=== PATIENT | male | born 1960 | race Caucasian/White ===

== ENCOUNTER 2023-06-30 16:05 | Emergency (ER) | payer MEDICAID ==
[~2023-06-30] VITALS: Ht 177.8 cm; Wt 92.7 kg
[2023-06-30 16:06] VITALS: TEMP 98
[2023-06-30] MEDS ORDERED: HYDROcodone/acetaminophen 10/325mg tab PO ONE ×2 (17:05→17:55)
[2023-06-30] MEDS ORDERED: ondansetron/PF 4mg/2ml inj IV ONE (17:30)
[2023-06-30] MEDS ORDERED: morphine 4 MG/ML inj SYRINge IV ONE (17:30)
[2023-06-30 17:53] LABS: BASOPHILS # (AUTO) 0.1 X10'3 (0-0.2); BASOPHILS % (AUTO) 0.9 % (0-1); EOSINOPHILS # (AUTO) 0.3 X10'3 (0-0.9); EOSINOPHILS % (AUTO) 3.7 % (0-6); HEMATOCRIT 44.6 % (42.0-52.0); LYMPHOCYTES # (AUTO) 0.8 X10'3 (1.1-4.8); LYMPHOCYTES % (AUTO) 8.9 % (21-51); MEAN CORPUSCULAR HEMOGLOBIN 29.1 PG (27.0-31.0); MEAN CORPUSCULAR HGB CONC 33.6 g/dL (33.0-36.5); MEAN CORPUSCULAR VOLUME 86.5 FL (78-98); MEAN PLATELET VOLUME 7.8 FL (7.4-10.4); MONOCYTES # (AUTO) 0.8 X10'3 (0-0.9); MONOCYTES % (AUTO) 8.5 % (2-12); NEUTROPHILS # (AUTO) 7.4 X10'3 (1.8-7.7); PLATELET COUNT 320 X10'3 (140-440); RED BLOOD COUNT 5.16 X10'6 (4.70-6.10); WHITE BLOOD COUNT 9.5 X10'3 (4.5-11.0)
[2023-06-30] MEDS ORDERED: ondansetron 4mg rapidly disintigrating tab PO ONE (17:55)
[2023-06-30 18:05] LABS: ALANINE AMINOTRANSFERASE 31 U/L (12-78); ALBUMIN 3.5 G/DL (3.4-5.0); ALBUMIN/GLOBULIN RATIO 0.8 (1.1-1.5); ALKALINE PHOSPHATASE 71 IU/L (46-116); ANION GAP 12 (8-16); ASPARTATE AMINO TRANSFERASE 22 U/L (10-37); BILIRUBIN,TOTAL 0.6 MG/DL (0.1-1.0); BLOOD UREA NITROGEN 19 MG/DL (7-18); BUN/CREATININE RATIO 20.9 (10.0-20.0); CALCIUM 9.7 MG/DL (8.5-10.1); CHLORIDE 102 MMOL/L (99-107); CREATININE 0.91 MG/DL (0.60-1.10); GLUCOSE 141 MG/DL (70-104); SODIUM 138 MMOL/L (135-145); TOTAL CARBON DIOXIDE 23.9 MMOL/L (24-32); TOTAL PROTEIN 7.9 G/DL (6.4-8.2); eGFR 84 ML/MIN
[2023-06-30 18:09] LABS: POTASSIUM 4.3 MMOL/L (3.5-5.1)
[2023-06-30 18:18] VITALS: BP 118/92; PULSE 95; RESP 18; O2SAT 94
[2023-06-30] MEDS ORDERED: ONDA4TAB12 PO (18:32)
[2023-06-30] MEDS ORDERED: IBUP-1986 PO (18:32)
[2023-06-30] MEDS ORDERED: CEPH-585 PO (18:32)
[2023-06-30] MEDS ORDERED: HYDR-3973 PO (19:21)
== END 2023-06-30 18:50 | disposition home or self-care (01) ==
LOC: ER 16:06
DX: S82.192A Other fracture of upper end of left tibia, initial encounter for closed fracture (principal); F17.200 Nicotine dependence, unspecified, uncomplicated; F12.10 Cannabis abuse, uncomplicated; Z88.5 Allergy status to narcotic agent; Z79.899 Other long term (current) drug therapy; Z79.1 Long term (current) use of non-steroidal anti-inflammatories (NSAID); W22.8XXA Striking against or struck by other objects, initial encounter; Y93.89 Activity, other specified; Y92.89 Other specified places as the place of occurrence of the external cause; Y99.8 Other external cause status
CPT/HCPCS: 29505; 36415; 73590; 80053; 85025; 93971; 99284; A6449